=== PATIENT | female | born 1965 | race Asian ===

== ENCOUNTER 2021-08-27 06:46 | Emergency (ER) | payer BC, OTHER ==
[2021-08-27 06:51] VITALS: TEMP 97.5; BMI 32.8
[2021-08-27] MEDS ORDERED: SODIUM CHLORIDE 0.9% 500 ML INFUS.BAG IV ONE (07:24)
[2021-08-27] MEDS ORDERED: MECLIZINE HCL 25 MG TABLET (FP) PO ONE (07:24)
[2021-08-27] MEDS ORDERED: METOCLOPRAMIDE HCL INJECTION 10 MG/2 ML VIAL IVPUSH ONE (07:24)
[2021-08-27] MEDS ORDERED: MECLIZINE HCL 25 MG TABLET (FP) ONE (07:30)
[2021-08-27] MEDS ORDERED: METOCLOPRAMIDE HCL INJECTION 10 MG/2 ML VIAL ONE (07:30)
[2021-08-27 08:37] LABS: CALCIUM 8.4 mg/dL (8.5-10.1)
[2021-08-27 08:38] LABS: BLOOD UREA NITROGEN 10.8 mg/dL (7-18)
[2021-08-27 08:41] LABS: CREATININE 0.8 mg/dL (0.55-1.3)
[2021-08-27 08:42] LABS: BASO % 0.6 % (0-2.0); BILIRUBIN,TOTAL 0.6 mg/dL (0.2-1); EOS % 2.6 % (0-4.5); HEMATOCRIT 41.5 % (32.4-45.2); HEMOGLOBIN 14.1 GM/dL (10.7-15.3); MCH 31.5 pg (25.7-33.7); MEAN CELL VOLUME 92.6 fl (80-96); MONO % 6.7 % (3.8-10.2); NEUT % 75.1 % (42.8-82.8); PLATELET COUNT 234 10^3/uL (134-434); RBC 4.48 M/mm3 (3.60-5.2); RDW 13.1 % (11.6-15.6); TOT PROT 6.8 g/dl (6.4-8.2); WHITE BLOOD COUNT 10.7 K/mm3 (4.0-10.0)
[2021-08-27 09:36] VITALS: BP 131/80; PULSE 62
== END 2021-08-27 09:37 | disposition home or self-care (01) ==
LOC: JER 06:46
PROC: 3E033GC Introduction of Other Therapeutic Substance into Peripheral Vein, Percutaneous Approach (ICD-10-PCS; principal; 2021-08-27)
DX: R42 Dizziness and giddiness (principal)
CPT/HCPCS: 36415; 80053; 85025; 93005; 93010; 99284-25

== ENCOUNTER 2021-10-29 08:07 | Emergency (ER) | payer BC ==
[2021-10-29 08:35] VITALS: BMI 32.5
[2021-10-29] MEDS ORDERED: SODIUM CHLORIDE 0.9% 500 ML INFUS.BAG IV ONE (09:34)
[2021-10-29] MEDS ORDERED: MECLIZINE HCL 25 MG TABLET (FP) PO ONE (09:34)
[2021-10-29] MEDS ORDERED: diazePAM 5 MG TABLET PO ONE (09:46)
[2021-10-29] MEDS ORDERED: diazePAM 5 MG TABLET ONE (09:56)
[2021-10-29 10:59] LABS: BASO % 0.8 % (0-2.0); EOS % 2.5 % (0-4.5); HEMATOCRIT 45.3 % (32.4-45.2); HEMOGLOBIN 15.2 GM/dL (10.7-15.3); LYMPH % 13.5 % (8-40); MCH 30.8 pg (25.7-33.7); MCHC 33.5 g/dl (32.0-36.0); MEAN CELL VOLUME 91.9 fl (80-96); MONO % 6.5 % (3.8-10.2); NEUT % 76.7 % (42.8-82.8); PLATELET COUNT 287 10^3/uL (134-434); RBC 4.93 M/mm3 (3.60-5.2); RDW 13.2 % (11.6-15.6); WHITE BLOOD COUNT 13.1 K/mm3 (4.0-10.0)
[2021-10-29 11:17] LABS: CALCIUM 8.5 mg/dL (8.5-10.1)
[2021-10-29 11:18] LABS: ALBUMIN 3.8 g/dl (3.4-5.0); BLOOD UREA NITROGEN 14.2 mg/dL (7-18)
[2021-10-29 11:21] LABS: CREATININE 0.8 mg/dL (0.55-1.3)
[2021-10-29 11:23] LABS: BILIRUBIN,TOTAL 0.4 mg/dL (0.2-1); TOT PROT 7.1 g/dl (6.4-8.2)
[2021-10-29 13:55] LABS: EPI CELLS 20 /uL (0-25.1); HYALINE CASTS 1 /uL (0-3.1); PH,URINE 6.5 (5.0-8.0); URINE APPEARANCE CLOUDY; URINE BACTERIA 10 /uL (0-1359); URINE BILIRUBIN NEGATIVE (NEGATIVE); URINE COLOR YELLOW; URINE GLUCOSE (UA) NEGATIVE (NEGATIVE); URINE KETONE NEGATIVE (NEGATIVE); URINE LEUK ESTERASE NEGATIVE (NEGATIVE); URINE NITRITE NEGATIVE (NEGATIVE); URINE PROTEIN 1+ (NEGATIVE); URINE RBC 17 /uL (0-23.9); URINE UROBILINOGEN 0.2 mg/dL (0.2-1.0); URINE WBC 24 /uL (0-25.8)
[2021-10-29 14:53] VITALS: BP 137/73; PULSE 81; TEMP 97.9
== END 2021-10-29 15:00 | disposition home or self-care (01) ==
LOC: JER 08:07
DX: R42 Dizziness and giddiness (principal)
CPT/HCPCS: 36415; 80053; 81003; 85025; 87086; 93005; 93010; 99284-25